=== PATIENT | male | born 1975 | race African-American/Black ===

== ENCOUNTER 2018-08-07 09:10 | Inpatient (IN) | payer SELFPAY ==
[~2018-08-07] VITALS: Ht 177.8 cm; Wt 106.2 kg
[2018-08-07] MEDS ORDERED: ASPIRIN 325 MG TABLET PO ONE (09:30)
[2018-08-07] MEDS ORDERED: IV NORMAL SALINE 1000ML BAG 1,000 ML IV ONE (09:30)
--- NOTE | 2018-08-07 09:31 | PHYS DOC ---
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 Patient denies anything specifically exacerbating or relieving the pain. He states he has tried Tylenol 325 mg this morning with no relief. Patient is also complaining of shortness of breath. Denies any nausea vomiting. He states he uses marijuana occasionally Review of Systems Review of Systems Constitutional: Denies fever or chills [] Eyes: Denies change in visual acuity, redness, or eye pain [] HENT: Denies nasal congestion or sore throat [] Respiratory: Reports shortness of breath. Denies cough Cardiovascular: Reports chest pain GI: Denies abdominal pain, nausea, vomiting, bloody stools or diarrhea [] : Denies dysuria or hematuria [] Musculoskeletal: Denies back pain or joint pain [] Integument: Denies rash or skin lesions [] Neurologic: Denies headache, focal weakness or sensory changes [] Endocrine: Denies polyuria or polydipsia [] All other systems were reviewed and found to be within normal limits, except as documented in this report Current Medications Current Medications Current Medications Medications (Trade) Dose Ordered Sig/Iris Start Time Stop Time Status Last Admin Dose Admin Aspirin (Khadijah Aspirin) 325 mg 1X ONCE 08/07/18 09:30 08/07/18 09:31 DC 08/07/18 09:33 325 MG Info (CONTRAST GIVEN -- Rx MONITORING) 1 each PRN DAILY PRN 08/07/18 10:30 08/09/18 10:29 Iohexol (Omnipaque 350 Mg/ml) 100 ml 1X ONCE 08/07/18 10:30 08/07/18 10:31 DC 08/07/18 10:26 100 ML Nitroglycerin (Nitrostat) 0.4 mg PRN Q5MIN PRN 08/07/18 09:30 08/08/18 09:29 08/07/18 09:47 0.4 MG Sodium Chloride 1,000 ml @ 1,000 mls/hr 1X ONCE 08/07/18 09:30 08/07/18 10:29 DC 08/07/18 09:34 1,000 MLS/HR Allergies Allergies Allergies Coded Allergies Type Severity Reaction Last Updated Verified No Known Drug Allergies 04/16/14 No Physical Exam Physical Exam Constitutional: Well developed, well nourished, no acute distress, non-toxic appearance. [] HENT: Normocephalic, atraumatic, bilateral external ears normal, oropharynx moist, no oral exudates, nose normal. [] Eyes: PERRLA, EOMI, conjunctiva normal, no discharge. [] Neck: Normal range of motion, no tenderness, supple, no stridor. [] Cardiovascular: Tachycardic, sweating Lungs & Thorax: Bilateral breath sounds clear to auscultation [] Abdomen: Bowel sounds normal, soft, no tenderness, no masses, no pulsatile masses. [] Skin: Warm, dry, no erythema, no rash. [] Back: No tenderness, no CVA tenderness. [] Extremities: No tenderness, no cyanosis, no clubbing, ROM intact, no edema. [] Neurologic: Alert and oriented X 3, normal motor function, normal sensory function, no focal deficits noted. [] Psychologic: Affect normal, judgement normal, mood normal. [] Current Patient Data Vital Signs Vital Signs Date Time Temp Pulse Resp B/P (MAP) Pulse Ox O2 Delivery O2 Flow Rate FiO2 08/07/18 10:18 114 138/78 (98) 98 Room Air 08/07/18 09:24 98.3 20 98.3 Lab Values Laboratory Tests Test 08/07/18 09:20 White Blood Count 13.1 x10^3/uL (4.0-11.0) H Red Blood Count 4.92 x10^6/uL (4.30-5.70) Hemoglobin 15.0 g/dL (13.0-17.5) Hematocrit 47.0 % (39.0-53.0) Mean Corpuscular Volume 95 fL (79-100) Mean Corpuscular Hemoglobin 31 pg (25-35) Mean Corpuscular Hemoglobin Concent 32 g/dL (31-37) Red Cell Distribution Width 13.7 % (11.5-14.5) Platelet Count 288 x10^3/uL (140-400) Neutrophils (%) (Auto) 71 % (31-73) Lymphocytes (%) (Auto) 21 % (24-48) L Monocytes (%) (Auto) 5 % (0-9) Eosinophils (%) (Auto) 3 % (0-3) Basophils (%) (Auto) 1 % (0-3) Neutrophils # (Auto) 9.3 x10^3uL (1.8-7.7) H Lymphocytes # (Auto) 2.7 x10^3/uL (1.0-4.8) Monocytes # (Auto) 0.7 x10^3/uL (0.0-1.1) Eosinophils # (Auto) 0.3 x10^3/uL (0.0-0.7) Basophils # (Auto) 0.1 x10^3/uL (0.0-0.2) Prothrombin Time 13.1 SEC (11.7-14.0) Prothrombin Time INR 1.0 (0.8-1.1) D-Dimer (Annie) 0.52 ug/mlFEU (0.00-0.50) H Sodium Level 142 mmol/L (136-145) Potassium Level 3.8 mmol/L (3.5-5.1) Chloride Level 105 mmol/L (98-107) Carbon Dioxide Level 22 mmol/L (21-32) Anion Gap 15 (6-14) H Blood Urea Nitrogen 7 mg/dL (8-26) L Creatinine 1.5 mg/dL (0.7-1.3) H Estimated GFR (Cockcroft-Gault) 61.5 BUN/Creatinine Ratio 5 (6-20) L Glucose Level 138 mg/dL (70-99) H Calcium Level 9.1 mg/dL (8.5-10.1) Magnesium Level 2.1 mg/dL (1.8-2.4) Total Bilirubin 0.6 mg/dL (0.2-1.0) Aspartate Amino Transferase (AST) 86 U/L (15-37) H Alanine Aminotransferase (ALT) 111 U/L (16-63) H Alkaline Phosphatase 92 U/L (46-116) Creatine Kinase 213 U/L (39-308) Creatine Kinase MB (Mass) 0.9 ng/mL (0.0-3.6) Creatine Kinase MB Relative Index 0.4 % (0-4) Troponin I Quantitative 0.059 ng/mL (0.000-0.055) EW-Ioe-G-Type Natriuretic Peptide 3170 pg/mL (0-124) H Total Protein 7.6 g/dL (6.4-8.2) Albumin 4.0 g/dL (3.4-5.0) Albumin/Globulin Ratio 1.1 (1.0-1.7) Lipase 180 U/L (73-393) Thyroid Stimulating Hormone (TSH) 1.474 uIU/mL (0.358-3.74) Ethyl Alcohol Level < 10 mg/dL (0-10) Laboratory Tests 08/07/18 09:20 Laboratory Tests 08/07/18 09:20 EKG EKG 09:[address] Crawford sinus tachycardia HR 124 no STEMI[] Radiology/Procedures Radiology/Procedures [] Course & Med Decision Making Course & Med Decision Making Pertinent Labs and Imaging studies reviewed. (See chart for details) This is a 43-year-old male patient presenting to the ED today complaining of substernal chest pain that began yesterday. EKG showed patient was tachycardic in the 120s. D-dimer was slightly up at 0.059 , CT chest is negative for PE. Heartscore-4 Consulted with [facility] [employer] who will follow-up with patient Consulted with Dr. Wang who accepted patient for admission. Patient informed Dr. Wang he uses cocaine. Dragon Disclaimer Dragon Disclaimer This electronic medical record was generated, in whole or in part, using a voice recognition dictation system. Departure Departure Impression: Primary Impression: Chest pain Additional Impressions: Elevated BP Smoking addiction Non-ST elevation TX (NSTEMI) Disposition: ADMITTED INPATIENT Condition: STABLE Referrals: NON,STAFF (PCP) Problem Qualifiers Primary Impression: Chest pain Chest pain type: unspecified Qualified Codes: R07.9 - Chest pain, unspecified BASIA DUMONT SARAHI Aug 07, 2018 09:30
[2018-08-07 09:34] LABS: BASO # 0.1 x10^3/uL (0.0-0.2); BASO % 1 % (0-3); EOS # 0.3 x10^3/uL (0.0-0.7); EOS % 3 % (0-3); LYMPH # 2.7 x10^3/uL (1.0-4.8); LYMPH % 21 % (24-48); MEAN CORPUSCULAR HEMOGLOBIN 31 pg (25-35); MEAN CORPUSCULAR HGB CONC 32 g/dL (31-37); MEAN CORPUSCULAR VOLUME 95 fL (79-100); MONO # 0.7 x10^3/uL (0.0-1.1); MONO % 5 % (0-9); NEUT # 9.3 x10^3uL (1.8-7.7); NEUT % 71 % (31-73); PLATELET COUNT 288 x10^3/uL (140-400); RED BLOOD COUNT 4.92 x10^6/uL (4.30-5.70); RED CELL DISTRIBUTION WIDTH 13.7 % (11.5-14.5); WHITE BLOOD COUNT 13.1 x10^3/uL (4.0-11.0)
[2018-08-07] MEDS: NITROGLYCERIN SUBLINGUAL 0.4 MG BOTTLE OF 25. SL PRN ×2 (09:34→09:47)
--- NOTE | 2018-08-07 09:47 | RAD ---
Indication:CHEST PAIN TECHNIQUE:Portable AP chest X-ray COMPARISON:Previous x-ray from 03/22/2013 FINDINGS: Heart is moderately enlarged in size. Prominent bilateral bronchial markings are seen. No focal consolidation. No pneumothorax or pleural effusion. Visualized bony thorax is within normal limits. IMPRESSION: 1. Interval with development of cardiomegaly. 2. Peribronchial edema with superimposed trace interstitial edema or bronchitis/atypical/viral infection. Electronically signed by: Ej Atkins DO (08/07/2018 9:44 AM) [id number]
[2018-08-07 09:53] LABS: CALCIUM 9.1 mg/dL (8.5-10.1); CREATININE 1.5 mg/dL (0.7-1.3); GFR 61.5; POTASSIUM 3.8 mmol/L (3.5-5.1)
[2018-08-07 09:56] LABS: PROTHROMBIN TIME PATIENT 13.1 SEC (11.7-14.0)
[2018-08-07 09:59] LABS: ALBUMIN/GLOBULIN RATIO 1.1 (1.0-1.7); MAGNESIUM 2.1 mg/dL (1.8-2.4); TOTAL BILIRUBIN 0.6 mg/dL (0.2-1.0); TOTAL PROTEIN 7.6 g/dL (6.4-8.2)
[2018-08-07 10:09] LABS: D-DIMER 0.52 ug/mlFEU (0.00-0.50)
[2018-08-07] MEDS ORDERED: CONTRAST GIVEN. MC PRN (10:30)
[2018-08-07] MEDS ORDERED: IOHEXOL 350 MG/ML 100 ML VIAL. IV ONE (10:30)
--- NOTE | 2018-08-07 10:52 | RAD ---
PQRS Compliance statement: One or more of the following individualized dose reduction techniques were utilized for this examination: 1. Automated exposure control. 2. Adjustment of the mA and/or kV according to patient size. 3. Use of iterative reconstruction technique. Indication:Chest pain, ELEVATED D DIMER INJ 100ML OMNI 350 NO PREV TECHNIQUE: CT angiogram of the chest with IV contrast with multiplanar MIP reformats. COMPARISON:None FINDINGS: Diagnostic quality PE study. There are no central, segmental or subsegmental filling defects in the pulmonary arteries. Heart is normal in size. No pericardial or pleural effusion. Clear neck base. No enlarged axillary adenopathy. Enlarged subcarinal lymph node approximately measuring 2.7 x 2.0 cm. 1.6 x 1.1 cm left hilar lymph node. 2.0 x 1.8 cm right hilar lymph node. Central airways are patent. Bilateral subpleural reticular opacities are seen in the lower lobes, right middle lobe and lingula. Visualized sections through the liver, spleen, pancreas, adrenals and kidneys within normal limits. No suspicious bony lesion. IMPRESSION: 1. No PE. 2. Mildly enlarged mediastinal and bilateral hilar lymph nodes, nonspecific may be reactive. 3. Bilateral lower lung zone subpleural reticular opacities, nonspecific may represent early changes of interstitial disease. Electronically signed by: Ej Atkins DO (08/07/2018 10:49 AM) [id number]
[2018-08-07] MEDS ORDERED: NITROGLYCERIN SUBLINGUAL 0.4 MG BOTTLE OF 25. SL PRN (11:30)
[2018-08-07] MEDS ORDERED: ACETAMINOPHEN 325 MG TABLET. PO PRN (11:30)
[2018-08-07] MEDS ORDERED: ONDANSETRON PF 4 MG/2 ML VIAL. IV PRN (11:30)
[2018-08-07] MEDS ORDERED: MORPHINE SULFATE 2 MG/ML VIAL. IV PRN (11:30)
--- NOTE | 2018-08-07 12:49 | EKG ---
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
[2018-08-07 12:50] VITALS: BP 129/88
--- NOTE | 2018-08-07 14:17 | PDOC2 ---
CARDIAC CONSULT DATE OF CONSULT Date of Consult DATE: 08/07/18 TIME: 14:12 REASON FOR CONSULT Reason for Consult: Chest Pain REFERRING PHYSICIAN Referring Physician: Chanelle Lujan APRN SOURCE Source: Chart review, Patient HISTORY OF PRESENT ILLNESS HISTORY OF PRESENT ILLNESS This is a 43 yo male who presented secondary to chest pain. 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 Located in his central chest. Describes as aching. No dizziness, diaphoresis, palpitations, SOA, or nausea/vomiting. [place] like possible GERD- too Tums- pain seemed to resolve. Went home and went to bed. Woke up with pain in left side. Describes as aching. Much worse with deep breathing. No history of CAD. Previous h/o CAD but does not routinely take oral meds. PAST MEDICAL HISTORY Cardiovascular: HTN Pulmonary: No pertinent hx GI: GERD Heme/Onc: No pertinent hx Hepatobiliary: No pertinent hx Psych: Addictions (cocaine ) Rheumatologic: No pertinent hx Infectious disease: No pertinent hx ENT: No pertinent hx Renal/: No pertinent hx Endocrine: No pertinent hx Dermatology: No pertinent hx PAST SURGICAL HISTORY Past Surgical History: No pertinent history FAMILY HISTORY Family History: Diabetes, High Cholestrol, Hypertension SOCIAL HISTORY Smoke: <1 pack per day ALCOHOL: other (12 pack per week) Drugs: Cocaine, Marijuana Lives: with Family CURRENT MEDICATIONS CURRENT MEDICATIONS Current Medications Medications (Trade) Dose Ordered Sig/Iris Route PRN Reason Start Time Stop Time Status Last Admin Dose Admin Aspirin (Khadijah Aspirin) 325 mg 1X ONCE PO 08/07/18 09:30 08/07/18 09:31 DC 08/07/18 09:33 Nitroglycerin (Nitrostat) 0.4 mg PRN Q5MIN PRN SL CP RATING > 1/10 08/07/18 09:30 08/08/18 09:29 08/07/18 09:47 Sodium Chloride 1,000 ml @ 1,000 mls/hr 1X ONCE IV 08/07/18 09:30 08/07/18 10:29 DC 08/07/18 09:34 Iohexol (Omnipaque 350 Mg/ml) 100 ml 1X ONCE IV 08/07/18 10:30 08/07/18 10:31 DC 08/07/18 10:26 ALLERGIES ALLERGIES: Coded Allergies: No Known Drug Allergies (Unverified , 04/16/14) ROS Review of System 14 point ROS conducted with pertinent positives noted above in HPI. PHYSICAL EXAM General: Alert, Oriented X3, Cooperative, No acute distress HEENT: Atraumatic Lungs: Clear to auscultation, Other (diminished bases ) Abdomen: Soft Extremities: Normal pulses, Other (trace bilateral LE edema ) Neuro: Normal speech, Sensation intact Psych/Mental Status: Mental status NL, Mood NL MUSCULOSKELETAL: No deformity VITALS VITALS Vital Signs Date Time Temp Pulse Resp B/P (MAP) Pulse Ox O2 Delivery O2 Flow Rate FiO2 08/07/18 13:05 Room Air 08/07/18 12:50 98.1 114 18 129/88 (102) 99 98.1 LABS Lab: Laboratory Tests Test 08/07/18 09:20 08/07/18 13:20 White Blood Count 13.1 x10^3/uL (4.0-11.0) Red Blood Count 4.92 x10^6/uL (4.30-5.70) Hemoglobin 15.0 g/dL (13.0-17.5) Hematocrit 47.0 % (39.0-53.0) Mean Corpuscular Volume 95 fL (79-100) Mean Corpuscular Hemoglobin 31 pg (25-35) Mean Corpuscular Hemoglobin Concent 32 g/dL (31-37) Red Cell Distribution Width 13.7 % (11.5-14.5) Platelet Count 288 x10^3/uL (140-400) Neutrophils (%) (Auto) 71 % (31-73) Lymphocytes (%) (Auto) 21 % (24-48) Monocytes (%) (Auto) 5 % (0-9) Eosinophils (%) (Auto) 3 % (0-3) Basophils (%) (Auto) 1 % (0-3) Neutrophils # (Auto) 9.3 x10^3uL (1.8-7.7) Lymphocytes # (Auto) 2.7 x10^3/uL (1.0-4.8) Monocytes # (Auto) 0.7 x10^3/uL (0.0-1.1) Eosinophils # (Auto) 0.3 x10^3/uL (0.0-0.7) Basophils # (Auto) 0.1 x10^3/uL (0.0-0.2) Prothrombin Time 13.1 SEC (11.7-14.0) Prothromb Time International Ratio 1.0 (0.8-1.1) D-Dimer (Annie) 0.52 ug/mlFEU (0.00-0.50) Sodium Level 142 mmol/L (136-145) Potassium Level 3.8 mmol/L (3.5-5.1) Chloride Level 105 mmol/L (98-107) Carbon Dioxide Level 22 mmol/L (21-32) Anion Gap 15 (6-14) Blood Urea Nitrogen 7 mg/dL (8-26) Creatinine 1.5 mg/dL (0.7-1.3) Estimated GFR (Cockcroft-Gault) 61.5 BUN/Creatinine Ratio 5 (6-20) Glucose Level 138 mg/dL (70-99) Calcium Level 9.1 mg/dL (8.5-10.1) Magnesium Level 2.1 mg/dL (1.8-2.4) Total Bilirubin 0.6 mg/dL (0.2-1.0) Aspartate Amino Transf (AST/SGOT) 86 U/L (15-37) Alanine Aminotransferase (ALT/SGPT) 111 U/L (16-63) Alkaline Phosphatase 92 U/L (46-116) Creatine Kinase 213 U/L (39-308) Creatine Kinase MB (Mass) 0.9 ng/mL (0.0-3.6) Creatine Kinase MB Relative Index 0.4 % (0-4) Troponin I Quantitative 0.059 ng/mL (0.000-0.055) 0.048 ng/mL (0.000-0.055) TM-Dwq-E-Type Natriuretic Peptide 3170 pg/mL (0-124) Total Protein 7.6 g/dL (6.4-8.2) Albumin 4.0 g/dL (3.4-5.0) Albumin/Globulin Ratio 1.1 (1.0-1.7) Lipase 180 U/L (73-393) Thyroid Stimulating Hormone (TSH) 1.474 uIU/mL (0.358-3.74) Ethyl Alcohol Level < 10 mg/dL (0-10) ASSESSMENT/PLAN ASSESSMENT/PLAN 1. Chest pain, most probable pleuritic as it is worsened with deep breathing 2. Mild troponin elevated; highest 0.059. Most probably type II, demand ischemic in the setting of cocaine use, HTN, and SUZANNE 3. CMP; LVEF significantly depressed per preliminary echo. Possible NICM given h/o cocaine abuse 4. Hypertension; elevated 5. Substance abuse; cocaine. Report using a couple time per week for the last five years. 6. Leukocytosis 7. Tachycardia; sinus 8. ? CKD; Cr 1.5 9. Elevated LFTs Recommendations ASA check lipids Start optimization therapy Mild diuresis with monitoring of renal function Consider outpatient ischemic evaluation to r/o ischemic etiology for CMP SS consult as patient does not have insurance Abstinence of substance abuse STEPHANIE ANGELO APRN Aug 07, 2018 14:17
--- NOTE | 2018-08-07 15:23 | CARD ---
MR#: [id number] Date of Study: 08/07/2018 Ordering Physician: STEPHANIE ANGELO, Referring Physician: JAY HOYT Tech: Keily Montaño RDCS APPROVED REPORT EXAM: Two-dimensional and M-mode echocardiogram with Doppler and color Doppler. Other Information Quality : Good INDICATION Chest Pain 2D DIMENSIONS RVDd2.6 (2.9-3.5cm)Left Atrium(2D)4.7 (1.6-4.0cm) IVSd1.3 (0.7-1.1cm)Aortic Root(2D)2.9 (2.0-3.7cm) LVDd5.6 (3.9-5.9cm)LVOT Diameter2.3 (1.8-2.4cm) PWd1.3 (0.7-1.1cm)LVDs5.3 (2.5-4.0cm) FS (%) 6.0 %SV20.8 ml Aortic Valve AoV Peak Manjeet.129.8cm/sAoV VTI15.7cm AO Peak GR.6.7mmHgLVOT Peak Manjeet.78.8cm/s AO Mean GR.4mmHgAVA (VMAX)2.56cm2 TONY (VTI)3.20cm2 Tricuspid Valve TR P. [id number] TR Peak [id number] LEFT VENTRICLE The Left Ventricle is mildly dilated. There is mild concentric left ventricular hypertrophy. Left kevin tricle systolic function is severely impaired. The Ejection Fraction is 15-20%. There is severe globa l hypokinesis of the left ventricle. RIGHT VENTRICLE The right ventricle is normal size. The right ventricular systolic function is normal. ATRIA The left atrium is mildly dilated. The right atrium size is normal. The interatrial septum is intact with no evidence for an atrial septal defect or patent foramen ovale as noted on 2-D or Doppler imagi ng. AORTIC VALVE The aortic valve is normal in structure and function. Doppler and Color Flow revealed trace aortic re gurgitation. There is no significant aortic valvular stenosis. MITRAL VALVE The mitral valve is calcified but opens well. There is no evidence of mitral valve prolapse. There is no mitral valve stenosis. Doppler and Color-flow revealed mild mitral regurgitation. TRICUSPID VALVE The tricuspid valve is normal in structure and function. Doppler and Color Flow revealed mild tricusp id regurgitation. The PA pressure was estimated at 38 mmHg. There is no tricuspid valve stenosis. PULMONIC VALVE The pulmonic valve is not well visualized. Doppler and Color Flow revealed trace pulmonic valvular re gurgitation. There is no pulmonic valvular stenosis. GREAT VESSELS The aortic root is normal in size. The ascending aorta is normal in size. The IVC is normal in size a nd collapses <50% with inspiration. PERICARDIAL EFFUSION There is no evidence of significant pericardial effusion. Critical Notification Critical Value: No <Conclusion> The Left Ventricle is mildly dilated. Left ventricle systolic function is severely impaired. The Ejection Fraction is 15-20%. There is severe global hypokinesis of the left ventricle. There is mild concentric left ventricular hypertrophy. There is no significant aortic valvular stenosis. Doppler and Color Flow revealed trace aortic regurgitation. Doppler and Color-flow revealed mild mitral regurgitation. Doppler and Color Flow revealed mild tricuspid regurgitation. The PA pressure was estimated at 38 mmHg. Signed by : Donovan Pruitt MD Electronically Approved : 08/07/2018 15:22:52
[2018-08-07 15:38] VITALS: BP 145/98
[2018-08-07] MEDS: LISINOPRIL 5 MG TABLET. PO SCH (17:25)
[2018-08-07] MEDS: CARVEDILOL 6.25 MG TABLET. PO SCH (17:25)
[2018-08-07] MEDS ORDERED: FUROSEMIDE 40 MG/4 ML VIAL. IVP ONE (18:00)
[2018-08-07 19:00] VITALS: BP 123/82
--- NOTE | 2018-08-07 19:25 | SSS ---
ADMIT DATE: 08/07/2018 CHIEF COMPLAINT: Chest pain. HISTORY OF PRESENT ILLNESS: The patient is a pleasant, relatively healthy middle-aged male who has been experimenting with cocaine lately. He just did it within the past couple of days. He presents to the ER with chest pain. His troponin is slightly bumped to 0.059. We suspect he has a type 2 demand ischemia, rates it 12/09 and he has associated nausea and anxiety. I discussed the case with ER physician. We are going to admit the patient and consult Cardiology. PAST MEDICAL HISTORY: Cocaine abuse, hypertension, GERD. ALLERGIES: None. FAMILY HISTORY: He denies coronary artery disease in the family. SOCIAL HISTORY: He does not drink or smoke. He takes cocaine, but states he is going to quit now that he has learned his lesson with this hospitalization. He is . MEDICATIONS: Reviewed, please refer to the MRAD. REVIEW OF SYSTEMS: GENERAL: No history of weight change, weakness or fevers. SKIN: No bruising, hair changes or rashes. EYES: No blurred, double or loss of vision. NOSE AND THROAT: No history of nosebleeds, hoarseness or sore throat. HEART: He complains of chest pain, although it is resolving. LUNGS: Denies cough, hemoptysis, wheezing or shortness of breath. GASTROINTESTINAL: Denies changes in appetite, nausea, vomiting, diarrhea or constipation. GENITOURINARY: No history of frequency, urgency, hesitancy or nocturia. NEUROLOGIC: Denies history of numbness, tingling, tremor or weakness. PSYCHIATRIC: No history of panic, anxiety or depression. ENDOCRINE: No history of heat or cold intolerance, polyuria or polydipsia. EXTREMITIES: Denies muscle weakness, joint pain, pain on walking or stiffness. PHYSICAL EXAMINATION: VITAL SIGNS: Temperature afebrile, pulse 98, respirations 18, blood pressure 154/90. GENERAL: He is alert, cooperative. HEART: Normal S1, S2. LUNGS: Clear. ABDOMEN: Soft. EXTREMITIES: No edema. SKIN: No rash. ENDOCRINE: No thyromegaly. LYMPHATICS: No cervical nodes. HEMATOPOIETIC: No bruising. PSYCHIATRIC: He is stable. LABORATORY DATA: Troponin is 0.059. White count 13. ASSESSMENT AND PLAN: 1. Elevated troponin and chest pain, probably secondary to cocaine. The patient has been admitted. We will check serial enzymes, serial EKGs. Consult Cardiology, cardiac monitoring. Daily aspirin, full code, DVT prophylaxis and home meds. JAY HOYT DO DR: ROSALIE/ghislaine JOB#: [id number] / [id number]
[2018-08-07 23:00] VITALS: BP 139/88
[2018-08-08 03:00] VITALS: BP 125/79
[2018-08-08 05:21] LABS: BASO % 0 % (0-3); EOS # 0.1 x10^3/uL (0.0-0.7); EOS % 1 % (0-3); HEMATOCRIT 43.5 % (39.0-53.0); HEMOGLOBIN 14.4 g/dL (13.0-17.5); LYMPH # 3.5 x10^3/uL (1.0-4.8); LYMPH % 28 % (24-48); MEAN CORPUSCULAR HEMOGLOBIN 31 pg (25-35); MEAN CORPUSCULAR HGB CONC 33 g/dL (31-37); MEAN CORPUSCULAR VOLUME 95 fL (79-100); MONO # 1.3 x10^3/uL (0.0-1.1); MONO % 11 % (0-9); NEUT # 7.7 x10^3uL (1.8-7.7); NEUT % 61 % (31-73); PLATELET COUNT 279 x10^3/uL (140-400); RED CELL DISTRIBUTION WIDTH 13.5 % (11.5-14.5); WHITE BLOOD COUNT 12.7 x10^3/uL (4.0-11.0)
[2018-08-08 05:41] LABS: CALCIUM 8.8 mg/dL (8.5-10.1); CREATININE 1.3 mg/dL (0.7-1.3); GFR 72.6; POTASSIUM 3.4 mmol/L (3.5-5.1)
[2018-08-08 05:48] LABS: CHOLESTEROL/HDL RATIO 3.8
[2018-08-08 07:00] VITALS: BP 127/97
--- NOTE | 2018-08-08 07:54 | PDOC ---
PROGRESS NOTES Chief Complaint Chief Complaint Chest pain, most probable pleuritic as it is worsened with deep breathing Mild troponin elevated; highest 0.059. Most probably type II, demand ischemic in the setting of cocaine use, HTN, and SUZANNE Cardiomyopathy LVEF significantly depressed per preliminary echo. Possible NICM given h/o cocaine abuse Hypertension; elevated Substance abuse; cocaine. Report using a couple time per week for the last five years. Leukocytosis Tachycardia; sinus ? CKD; Cr 1.5 Elevated LFTs History of Present Illness History of Present Illness 43yo pleasant, relatively healthy middle-aged male who has been experimenting with cocaine lately. He just did it within the past couple of days. He presents to the ER with chest pain. His troponin was slightly bumped to 0.059. We suspect he has a type 2 demand ischemia, rates it 12/09 and he has associated nausea and anxiety. 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 Improved by this morning, able to take PO, he wishes to stop cocaine. Plan: Dc on coreg, MARIANNE, ASA The Left Ventricle is mildly dilated. Left ventricle systolic function is severely impaired. The Ejection Fraction is 15-20%. There is severe global hypokinesis of the left ventricle. There is mild concentric left ventricular hypertrophy. There is no significant aortic valvular stenosis. Doppler and Color Flow revealed trace aortic regurgitation. Doppler and Color-flow revealed mild mitral regurgitation. Doppler and Color Flow revealed mild tricuspid regurgitation. The PA pressure was estimated at 38 mmHg. Vitals Vitals Vital Signs Date Time Temp Pulse Resp B/P (MAP) Pulse Ox O2 Delivery O2 Flow Rate FiO2 08/08/18 03:00 99.2 118 18 125/79 (94) 98 Room Air 99.2 Physical Exam General: Alert, Oriented X3, Cooperative, No acute distress Abdomen: Soft Extremities: Normal pulses, Other (trace bilateral LE edema ) Labs LABS Laboratory Tests Test 08/07/18 09:20 08/07/18 13:20 08/07/18 18:20 08/08/18 04:30 White Blood Count 13.1 x10^3/uL (4.0-11.0) 12.7 x10^3/uL (4.0-11.0) Red Blood Count 4.92 x10^6/uL (4.30-5.70) 4.60 x10^6/uL (4.30-5.70) Hemoglobin 15.0 g/dL (13.0-17.5) 14.4 g/dL (13.0-17.5) Hematocrit 47.0 % (39.0-53.0) 43.5 % (39.0-53.0) Mean Corpuscular Volume 95 fL (79-100) 95 fL (79-100) Mean Corpuscular Hemoglobin 31 pg (25-35) 31 pg (25-35) Mean Corpuscular Hemoglobin Concent 32 g/dL (31-37) 33 g/dL (31-37) Red Cell Distribution Width 13.7 % (11.5-14.5) 13.5 % (11.5-14.5) Platelet Count 288 x10^3/uL (140-400) 279 x10^3/uL (140-400) Neutrophils (%) (Auto) 71 % (31-73) 61 % (31-73) Lymphocytes (%) (Auto) 21 % (24-48) 28 % (24-48) Monocytes (%) (Auto) 5 % (0-9) 11 % (0-9) Eosinophils (%) (Auto) 3 % (0-3) 1 % (0-3) Basophils (%) (Auto) 1 % (0-3) 0 % (0-3) Neutrophils # (Auto) 9.3 x10^3uL (1.8-7.7) 7.7 x10^3uL (1.8-7.7) Lymphocytes # (Auto) 2.7 x10^3/uL (1.0-4.8) 3.5 x10^3/uL (1.0-4.8) Monocytes # (Auto) 0.7 x10^3/uL (0.0-1.1) 1.3 x10^3/uL (0.0-1.1) Eosinophils # (Auto) 0.3 x10^3/uL (0.0-0.7) 0.1 x10^3/uL (0.0-0.7) Basophils # (Auto) 0.1 x10^3/uL (0.0-0.2) 0.0 x10^3/uL (0.0-0.2) Prothrombin Time 13.1 SEC (11.7-14.0) Prothromb Time International Ratio 1.0 (0.8-1.1) D-Dimer (Annie) 0.52 ug/mlFEU (0.00-0.50) Sodium Level 142 mmol/L (136-145) 141 mmol/L (136-145) Potassium Level 3.8 mmol/L (3.5-5.1) 3.4 mmol/L (3.5-5.1) Chloride Level 105 mmol/L (98-107) 105 mmol/L (98-107) Carbon Dioxide Level 22 mmol/L (21-32) 26 mmol/L (21-32) Anion Gap 15 (6-14) 10 (6-14) Blood Urea Nitrogen 7 mg/dL (8-26) 6 mg/dL (8-26) Creatinine 1.5 mg/dL (0.7-1.3) 1.3 mg/dL (0.7-1.3) Estimated GFR (Cockcroft-Gault) 61.5 72.6 BUN/Creatinine Ratio 5 (6-20) Glucose Level 138 mg/dL (70-99) 101 mg/dL (70-99) Calcium Level 9.1 mg/dL (8.5-10.1) 8.8 mg/dL (8.5-10.1) Magnesium Level 2.1 mg/dL (1.8-2.4) Total Bilirubin 0.6 mg/dL (0.2-1.0) Aspartate Amino Transf (AST/SGOT) 86 U/L (15-37) Alanine Aminotransferase (ALT/SGPT) 111 U/L (16-63) Alkaline Phosphatase 92 U/L (46-116) Creatine Kinase 213 U/L (39-308) Creatine Kinase MB (Mass) 0.9 ng/mL (0.0-3.6) Creatine Kinase MB Relative Index 0.4 % (0-4) Troponin I Quantitative 0.059 ng/mL (0.000-0.055) 0.048 ng/mL (0.000-0.055) 0.053 ng/mL (0.000-0.055) OX-Hjq-K-Type Natriuretic Peptide 3170 pg/mL (0-124) Total Protein 7.6 g/dL (6.4-8.2) Albumin 4.0 g/dL (3.4-5.0) Albumin/Globulin Ratio 1.1 (1.0-1.7) Lipase 180 U/L (73-393) Thyroid Stimulating Hormone (TSH) 1.474 uIU/mL (0.358-3.74) Ethyl Alcohol Level < 10 mg/dL (0-10) Triglycerides Level 165 mg/dL (0-150) Cholesterol Level 153 mg/dL (0-200) LDL Cholesterol, Calculated 80 mg/dL (0-100) VLDL Cholesterol, Calculated 33 mg/dL (0-40) Non-HDL Cholesterol Calculated 113 mg/dL (0-129) HDL Cholesterol 40 mg/dL (40-60) Cholesterol/HDL Ratio 3.8 Assessment and Plan Assessmemt and Plan Problems Medical Problems: (1) Chest pain Status: Acute (2) Elevated BP Status: Acute (3) Non-ST elevation [place] (NSTEMI) Status: Acute (4) Smoking addiction Status: Acute Comment Review of Relevant I have reviewed the following items byron (where applicable) has been applied. Labs Laboratory Tests Test 08/07/18 09:20 08/07/18 13:20 08/07/18 18:20 08/08/18 04:30 White Blood Count 13.1 x10^3/uL (4.0-11.0) 12.7 x10^3/uL (4.0-11.0) Red Blood Count 4.92 x10^6/uL (4.30-5.70) 4.60 x10^6/uL (4.30-5.70) Hemoglobin 15.0 g/dL (13.0-17.5) 14.4 g/dL (13.0-17.5) Hematocrit 47.0 % (39.0-53.0) 43.5 % (39.0-53.0) Mean Corpuscular Volume 95 fL (79-100) 95 fL (79-100) Mean Corpuscular Hemoglobin 31 pg (25-35) 31 pg (25-35) Mean Corpuscular Hemoglobin Concent 32 g/dL (31-37) 33 g/dL (31-37) Red Cell Distribution Width 13.7 % (11.5-14.5) 13.5 % (11.5-14.5) Platelet Count 288 x10^3/uL (140-400) 279 x10^3/uL (140-400) Neutrophils (%) (Auto) 71 % (31-73) 61 % (31-73) Lymphocytes (%) (Auto) 21 % (24-48) 28 % (24-48) Monocytes (%) (Auto) 5 % (0-9) 11 % (0-9) Eosinophils (%) (Auto) 3 % (0-3) 1 % (0-3) Basophils (%) (Auto) 1 % (0-3) 0 % (0-3) Neutrophils # (Auto) 9.3 x10^3uL (1.8-7.7) 7.7 x10^3uL (1.8-7.7) Lymphocytes # (Auto) 2.7 x10^3/uL (1.0-4.8) 3.5 x10^3/uL (1.0-4.8) Monocytes # (Auto) 0.7 x10^3/uL (0.0-1.1) 1.3 x10^3/uL (0.0-1.1) Eosinophils # (Auto) 0.3 x10^3/uL (0.0-0.7) 0.1 x10^3/uL (0.0-0.7) Basophils # (Auto) 0.1 x10^3/uL (0.0-0.2) 0.0 x10^3/uL (0.0-0.2) Prothrombin Time 13.1 SEC (11.7-14.0) Prothromb Time International Ratio 1.0 (0.8-1.1) D-Dimer (Annie) 0.52 ug/mlFEU (0.00-0.50) Sodium Level 142 mmol/L (136-145) 141 mmol/L (136-145) Potassium Level 3.8 mmol/L (3.5-5.1) 3.4 mmol/L (3.5-5.1) Chloride Level 105 mmol/L (98-107) 105 mmol/L (98-107) Carbon Dioxide Level 22 mmol/L (21-32) 26 mmol/L (21-32) Anion Gap 15 (6-14) 10 (6-14) Blood Urea Nitrogen 7 mg/dL (8-26) 6 mg/dL (8-26) Creatinine 1.5 mg/dL (0.7-1.3) 1.3 mg/dL (0.7-1.3) Estimated GFR (Cockcroft-Gault) 61.5 72.6 BUN/Creatinine Ratio 5 (6-20) Glucose Level 138 mg/dL (70-99) 101 mg/dL (70-99) Calcium Level 9.1 mg/dL (8.5-10.1) 8.8 mg/dL (8.5-10.1) Magnesium Level 2.1 mg/dL (1.8-2.4) Total Bilirubin 0.6 mg/dL (0.2-1.0) Aspartate Amino Transf (AST/SGOT) 86 U/L (15-37) Alanine Aminotransferase (ALT/SGPT) 111 U/L (16-63) Alkaline Phosphatase 92 U/L (46-116) Creatine Kinase 213 U/L (39-308) Creatine Kinase MB (Mass) 0.9 ng/mL (0.0-3.6) Creatine Kinase MB Relative Index 0.4 % (0-4) Troponin I Quantitative 0.059 ng/mL (0.000-0.055) 0.048 ng/mL (0.000-0.055) 0.053 ng/mL (0.000-0.055) OP-Lzz-P-Type Natriuretic Peptide 3170 pg/mL (0-124) Total Protein 7.6 g/dL (6.4-8.2) Albumin 4.0 g/dL (3.4-5.0) Albumin/Globulin Ratio 1.1 (1.0-1.7) Lipase 180 U/L (73-393) Thyroid Stimulating Hormone (TSH) 1.474 uIU/mL (0.358-3.74) Ethyl Alcohol Level < 10 mg/dL (0-10) Triglycerides Level 165 mg/dL (0-150) Cholesterol Level 153 mg/dL (0-200) LDL Cholesterol, Calculated 80 mg/dL (0-100) VLDL Cholesterol, Calculated 33 mg/dL (0-40) Non-HDL Cholesterol Calculated 113 mg/dL (0-129) HDL Cholesterol 40 mg/dL (40-60) Cholesterol/HDL Ratio 3.8 Laboratory Tests Test 08/07/18 09:20 08/07/18 13:20 08/07/18 18:20 08/08/18 04:30 White Blood Count 13.1 x10^3/uL (4.0-11.0) 12.7 x10^3/uL (4.0-11.0) Red Blood Count 4.92 x10^6/uL (4.30-5.70) 4.60 x10^6/uL (4.30-5.70) Hemoglobin 15.0 g/dL (13.0-17.5) 14.4 g/dL (13.0-17.5) Hematocrit 47.0 % (39.0-53.0) 43.5 % (39.0-53.0) Mean Corpuscular Volume 95 fL (79-100) 95 fL (79-100) Mean Corpuscular Hemoglobin 31 pg (25-35) 31 pg (25-35) Mean Corpuscular Hemoglobin Concent 32 g/dL (31-37) 33 g/dL (31-37) Red Cell Distribution Width 13.7 % (11.5-14.5) 13.5 % (11.5-14.5) Platelet Count 288 x10^3/uL (140-400) 279 x10^3/uL (140-400) Neutrophils (%) (Auto) 71 % (31-73) 61 % (31-73) Lymphocytes (%) (Auto) 21 % (24-48) 28 % (24-48) Monocytes (%) (Auto) 5 % (0-9) 11 % (0-9) Eosinophils (%) (Auto) 3 % (0-3) 1 % (0-3) Basophils (%) (Auto) 1 % (0-3) 0 % (0-3) Neutrophils # (Auto) 9.3 x10^3uL (1.8-7.7) 7.7 x10^3uL (1.8-7.7) Lymphocytes # (Auto) 2.7 x10^3/uL (1.0-4.8) 3.5 x10^3/uL (1.0-4.8) Monocytes # (Auto) 0.7 x10^3/uL (0.0-1.1) 1.3 x10^3/uL (0.0-1.1) Eosinophils # (Auto) 0.3 x10^3/uL (0.0-0.7) 0.1 x10^3/uL (0.0-0.7) Basophils # (Auto) 0.1 x10^3/uL (0.0-0.2) 0.0 x10^3/uL (0.0-0.2) Prothrombin Time 13.1 SEC (11.7-14.0) Prothromb Time International Ratio 1.0 (0.8-1.1) D-Dimer (Annie) 0.52 ug/mlFEU (0.00-0.50) Sodium Level 142 mmol/L (136-145) 141 mmol/L (136-145) Potassium Level 3.8 mmol/L (3.5-5.1) 3.4 mmol/L (3.5-5.1) Chloride Level 105 mmol/L (98-107) 105 mmol/L (98-107) Carbon Dioxide Level 22 mmol/L (21-32) 26 mmol/L (21-32) Anion Gap 15 (6-14) 10 (6-14) Blood Urea Nitrogen 7 mg/dL (8-26) 6 mg/dL (8-26) Creatinine 1.5 mg/dL (0.7-1.3) 1.3 mg/dL (0.7-1.3) Estimated GFR (Cockcroft-Gault) 61.5 72.6 BUN/Creatinine Ratio 5 (6-20) Glucose Level 138 mg/dL (70-99) 101 mg/dL (70-99) Calcium Level 9.1 mg/dL (8.5-10.1) 8.8 mg/dL (8.5-10.1) Magnesium Level 2.1 mg/dL (1.8-2.4) Total Bilirubin 0.6 mg/dL (0.2-1.0) Aspartate Amino Transf (AST/SGOT) 86 U/L (15-37) Alanine Aminotransferase (ALT/SGPT) 111 U/L (16-63) Alkaline Phosphatase 92 U/L (46-116) Creatine Kinase 213 U/L (39-308) Creatine Kinase MB (Mass) 0.9 ng/mL (0.0-3.6) Creatine Kinase MB Relative Index 0.4 % (0-4) Troponin I Quantitative 0.059 ng/mL (0.000-0.055) 0.048 ng/mL (0.000-0.055) 0.053 ng/mL (0.000-0.055) EB-Efp-E-Type Natriuretic Peptide 3170 pg/mL (0-124) Total Protein 7.6 g/dL (6.4-8.2) Albumin 4.0 g/dL (3.4-5.0) Albumin/Globulin Ratio 1.1 (1.0-1.7) Lipase 180 U/L (73-393) Thyroid Stimulating Hormone (TSH) 1.474 uIU/mL (0.358-3.74) Ethyl Alcohol Level < 10 mg/dL (0-10) Triglycerides Level 165 mg/dL (0-150) Cholesterol Level 153 mg/dL (0-200) LDL Cholesterol, Calculated 80 mg/dL (0-100) VLDL Cholesterol, Calculated 33 mg/dL (0-40) Non-HDL Cholesterol Calculated 113 mg/dL (0-129) HDL Cholesterol 40 mg/dL (40-60) Cholesterol/HDL Ratio 3.8 Medications Current Medications Aspirin (J. Hilburn Aspirin) 325 mg 1X ONCE PO Last administered on 08/07/18at 09:33 ; Start 08/07/18 at 09:30; Stop 08/07/18 at 09:31; Status DC Nitroglycerin (Nitrostat) 0.4 mg PRN Q5MIN PRN SL CP RATING > 1/10 Last administered on 08/07/18at 09:47; Start 08/07/18 at 09:30; Stop 08/08/18 at 09:29 Sodium Chloride 1,000 ml @ 1,000 mls/hr 1X ONCE IV Last administered on at 09:34; Start 08/07/18 at 09:30; Stop 08/07/18 at 10:29; Status DC Iohexol (Omnipaque 350 Mg/ml) 100 ml 1X ONCE IV Last administered on 08/07/18at 10:26; Start 08/07/18 at 10:30; Stop 08/07/18 at 10:31; Status DC Info (CONTRAST GIVEN -- Rx MONITORING) 1 each PRN DAILY PRN MC SEE COMMENTS; Start 08/07/18 at 10:30; Stop 08/09/18 at 10:29 Ondansetron HCl (Zofran) 4 mg PRN Q8HRS PRN IV NAUSEA/VOMITING; Start 08/07/18 at 11:30; Stop 08/08/18 at 11:29 Morphine Sulfate (Morphine Sulfate) 2 mg PRN Q2HR PRN IV PAIN; Start 08/07/18 at 11:30; Stop 08/08/18 at 11:29 Acetaminophen (Tylenol) 650 mg PRN Q4HRS PRN PO FEVER; Start 08/07/18 at 11:30; Stop 08/08/18 at 11:29 Nitroglycerin (Nitrostat) 0.4 mg PRN Q5MIN PRN SL CHEST PAIN; Start 08/07/18 at 11:30; Stop 08/08/18 at 11:29 Carvedilol (Coreg) 6.25 mg BIDWMEALS PO Last administered on 08/07/18at 17:25; Start 08/07/18 at 17:00 Lisinopril (Prinivil) 5 mg DAILY PO Last administered on 08/07/18at 17:25; Start 08/07/18 at 16:00 Aspirin (Ecotrin) 81 mg DAILYWBKFT PO ; Start 08/08/18 at 08:00 Furosemide (Lasix) 40 mg 1X ONCE IVP Last administered on 08/07/18at 18:10; Start 08/07/18 at 18:00; Stop 08/07/18 at 18:01; Status DC Vitals/I & O Vital Sign - Last 24 Hours 08/07/18 08/07/18 08/07/18 08/07/18 09:24 09:34 09:47 09:48 Temp 98.3 98.3 Pulse 126 117 112 114 Resp 20 B/P (MAP) 176/115 (135) 176/115 142/75 134/74 (94) Pulse Ox 100 98 O2 Delivery Room Air Room Air 08/07/18 08/07/18 08/07/18 08/07/18 10:18 10:32 12:50 13:05 Temp 98.1 98.1 Pulse 114 116 114 Resp 18 B/P (MAP) 138/78 (98) 152/99 (116) 129/88 (102) Pulse Ox 98 97 99 O2 Delivery Room Air Room Air Room Air Room Air 08/07/18 08/07/18 08/07/18 08/07/18 15:38 17:25 17:25 19:00 Temp 97.9 99.5 97.9 99.5 Pulse 114 114 114 116 Resp 18 18 B/P (MAP) 145/98 (114) 145/98 145/98 123/82 (96) Pulse Ox 96 95 O2 Delivery Room Air Room Air 08/07/18 08/07/18 08/08/18 20:01 23:00 03:00 Temp 99.4 99.2 99.4 99.2 Pulse 123 118 Resp 18 18 B/P (MAP) 139/88 (105) 125/79 (94) Pulse Ox 96 98 O2 Delivery Room Air Room Air Room Air Intake and Output 08/07/18 08/07/18 08/08/18 15:00 23:00 07:00 Intake Total 180 ml 580 ml 120 ml Balance 180 ml 580 ml 120 ml KAILYN LOPEZ MD Aug 08, 2018 07:54
[2018-08-08] MEDS ORDERED: ASPIRIN ENTERIC COATED 81 MG TABLET.DR. PO SCH (08:00)
[2018-08-08] MEDS: CARVEDILOL 6.25 MG TABLET. PO SCH (08:14)
[2018-08-08] MEDS: LISINOPRIL 5 MG TABLET. PO SCH (08:14)
[2018-08-08 10:57] VITALS: BP 96/71
[2018-08-08] MEDS ORDERED: CARV6.2511 PO (13:05)
[2018-08-08] MEDS ORDERED: ASPI-612 PO (13:05)
[2018-08-08] MEDS ORDERED: LISI-338 PO (13:05)
--- NOTE | 2018-08-08 13:14 | PDOC3 ---
Discharge Summary Visit Information Date of Admission: Aug 07, 2018 Date of Discharge: Aug 08, 2018 Admitting Diagnosis: NSTEMI Final Diagnosis Problems Medical Problems: (1) Chest pain Status: Acute (2) Elevated BP Status: Acute (3) Non-ST elevation [place] (NSTEMI) Status: Acute (4) Smoking addiction Status: Acute Brief Hospital Course Allergies Allergies Coded Allergies Type Severity Reaction Last Updated Verified No Known Drug Allergies 04/16/14 No Vital Signs Vital Signs Date Time Temp Pulse Resp B/P (MAP) Pulse Ox O2 Delivery O2 Flow Rate FiO2 08/08/18 10:57 98.0 109 20 96/71 (79) 95 Room Air 98.0 Lab Results Laboratory Tests Test 08/07/18 09:20 08/07/18 13:20 08/07/18 18:20 08/08/18 04:30 White Blood Count 13.1 x10^3/uL (4.0-11.0) 12.7 x10^3/uL (4.0-11.0) Red Blood Count 4.92 x10^6/uL (4.30-5.70) 4.60 x10^6/uL (4.30-5.70) Hemoglobin 15.0 g/dL (13.0-17.5) 14.4 g/dL (13.0-17.5) Hematocrit 47.0 % (39.0-53.0) 43.5 % (39.0-53.0) Mean Corpuscular Volume 95 fL (79-100) 95 fL (79-100) Mean Corpuscular Hemoglobin 31 pg (25-35) 31 pg (25-35) Mean Corpuscular Hemoglobin Concent 32 g/dL (31-37) 33 g/dL (31-37) Red Cell Distribution Width 13.7 % (11.5-14.5) 13.5 % (11.5-14.5) Platelet Count 288 x10^3/uL (140-400) 279 x10^3/uL (140-400) Neutrophils (%) (Auto) 71 % (31-73) 61 % (31-73) Lymphocytes (%) (Auto) 21 % (24-48) 28 % (24-48) Monocytes (%) (Auto) 5 % (0-9) 11 % (0-9) Eosinophils (%) (Auto) 3 % (0-3) 1 % (0-3) Basophils (%) (Auto) 1 % (0-3) 0 % (0-3) Neutrophils # (Auto) 9.3 x10^3uL (1.8-7.7) 7.7 x10^3uL (1.8-7.7) Lymphocytes # (Auto) 2.7 x10^3/uL (1.0-4.8) 3.5 x10^3/uL (1.0-4.8) Monocytes # (Auto) 0.7 x10^3/uL (0.0-1.1) 1.3 x10^3/uL (0.0-1.1) Eosinophils # (Auto) 0.3 x10^3/uL (0.0-0.7) 0.1 x10^3/uL (0.0-0.7) Basophils # (Auto) 0.1 x10^3/uL (0.0-0.2) 0.0 x10^3/uL (0.0-0.2) Prothrombin Time 13.1 SEC (11.7-14.0) Prothromb Time International Ratio 1.0 (0.8-1.1) D-Dimer (Annie) 0.52 ug/mlFEU (0.00-0.50) Sodium Level 142 mmol/L (136-145) 141 mmol/L (136-145) Potassium Level 3.8 mmol/L (3.5-5.1) 3.4 mmol/L (3.5-5.1) Chloride Level 105 mmol/L (98-107) 105 mmol/L (98-107) Carbon Dioxide Level 22 mmol/L (21-32) 26 mmol/L (21-32) Anion Gap 15 (6-14) 10 (6-14) Blood Urea Nitrogen 7 mg/dL (8-26) 6 mg/dL (8-26) Creatinine 1.5 mg/dL (0.7-1.3) 1.3 mg/dL (0.7-1.3) Estimated GFR (Cockcroft-Gault) 61.5 72.6 BUN/Creatinine Ratio 5 (6-20) Glucose Level 138 mg/dL (70-99) 101 mg/dL (70-99) Calcium Level 9.1 mg/dL (8.5-10.1) 8.8 mg/dL (8.5-10.1) Magnesium Level 2.1 mg/dL (1.8-2.4) Total Bilirubin 0.6 mg/dL (0.2-1.0) Aspartate Amino Transf (AST/SGOT) 86 U/L (15-37) Alanine Aminotransferase (ALT/SGPT) 111 U/L (16-63) Alkaline Phosphatase 92 U/L (46-116) Creatine Kinase 213 U/L (39-308) Creatine Kinase MB (Mass) 0.9 ng/mL (0.0-3.6) Creatine Kinase MB Relative Index 0.4 % (0-4) Troponin I Quantitative 0.059 ng/mL (0.000-0.055) 0.048 ng/mL (0.000-0.055) 0.053 ng/mL (0.000-0.055) LG-Gge-S-Type Natriuretic Peptide 3170 pg/mL (0-124) Total Protein 7.6 g/dL (6.4-8.2) Albumin 4.0 g/dL (3.4-5.0) Albumin/Globulin Ratio 1.1 (1.0-1.7) Lipase 180 U/L (73-393) Thyroid Stimulating Hormone (TSH) 1.474 uIU/mL (0.358-3.74) Ethyl Alcohol Level < 10 mg/dL (0-10) Triglycerides Level 165 mg/dL (0-150) Cholesterol Level 153 mg/dL (0-200) LDL Cholesterol, Calculated 80 mg/dL (0-100) VLDL Cholesterol, Calculated 33 mg/dL (0-40) Non-HDL Cholesterol Calculated 113 mg/dL (0-129) HDL Cholesterol 40 mg/dL (40-60) Cholesterol/HDL Ratio 3.8 Laboratory Tests Test 08/07/18 13:20 08/07/18 18:20 08/08/18 04:30 Troponin I Quantitative 0.048 ng/mL (0.000-0.055) 0.053 ng/mL (0.000-0.055) White Blood Count 12.7 x10^3/uL (4.0-11.0) Red Blood Count 4.60 x10^6/uL (4.30-5.70) Hemoglobin 14.4 g/dL (13.0-17.5) Hematocrit 43.5 % (39.0-53.0) Mean Corpuscular Volume 95 fL (79-100) Mean Corpuscular Hemoglobin 31 pg (25-35) Mean Corpuscular Hemoglobin Concent 33 g/dL (31-37) Red Cell Distribution Width 13.5 % (11.5-14.5) Platelet Count 279 x10^3/uL (140-400) Neutrophils (%) (Auto) 61 % (31-73) Lymphocytes (%) (Auto) 28 % (24-48) Monocytes (%) (Auto) 11 % (0-9) Eosinophils (%) (Auto) 1 % (0-3) Basophils (%) (Auto) 0 % (0-3) Neutrophils # (Auto) 7.7 x10^3uL (1.8-7.7) Lymphocytes # (Auto) 3.5 x10^3/uL (1.0-4.8) Monocytes # (Auto) 1.3 x10^3/uL (0.0-1.1) Eosinophils # (Auto) 0.1 x10^3/uL (0.0-0.7) Basophils # (Auto) 0.0 x10^3/uL (0.0-0.2) Sodium Level 141 mmol/L (136-145) Potassium Level 3.4 mmol/L (3.5-5.1) Chloride Level 105 mmol/L (98-107) Carbon Dioxide Level 26 mmol/L (21-32) Anion Gap 10 (6-14) Blood Urea Nitrogen 6 mg/dL (8-26) Creatinine 1.3 mg/dL (0.7-1.3) Estimated GFR (Cockcroft-Gault) 72.6 Glucose Level 101 mg/dL (70-99) Calcium Level 8.8 mg/dL (8.5-10.1) Triglycerides Level 165 mg/dL (0-150) Cholesterol Level 153 mg/dL (0-200) LDL Cholesterol, Calculated 80 mg/dL (0-100) VLDL Cholesterol, Calculated 33 mg/dL (0-40) Non-HDL Cholesterol Calculated 113 mg/dL (0-129) HDL Cholesterol 40 mg/dL (40-60) Cholesterol/HDL Ratio 3.8 Brief Hospital Course 43yo pleasant, relatively healthy middle-aged male who has been experimenting with cocaine lately. He just did it within the past couple of days. He presents to the ER with chest pain. His troponin was slightly bumped to 0.059. We suspect he has a type 2 demand ischemia, rates it / and he has associated nausea and anxiety. 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 Improved by this morning, able to take PO, he wishes to stop cocaine. Plan: Dc on coreg, MARIANNE, ASA The Left Ventricle is mildly dilated. Left ventricle systolic function is severely impaired. The Ejection Fraction is 15-20%. There is severe global hypokinesis of the left ventricle. There is mild concentric left ventricular hypertrophy. There is no significant aortic valvular stenosis. Doppler and Color Flow revealed trace aortic regurgitation. Doppler and Color-flow revealed mild mitral regurgitation. Doppler and Color Flow revealed mild tricuspid regurgitation. The PA pressure was estimated at 38 mmHg. Chest pain, most probable pleuritic as it is worsened with deep breathing Mild troponin elevated; highest 0.059. Most probably type II, demand ischemic in the setting of cocaine use, HTN, and SUZANNE Cardiomyopathy LVEF significantly depressed per preliminary echo. Possible NICM given h/o cocaine abuse Hypertension; elevated Substance abuse; cocaine. Report using a couple time per week for the last five years. Leukocytosis Tachycardia; sinus ? CKD; Cr 1.5 Elevated LFTs Discharge Information Condition at Discharge: Improved Follow Up: Weeks (2) Disposition/Orders: D/C to Home Scheduled Aspirin (Aspirin Ec) 81 Mg Tablet., 81 MG PO [id number] for CHF for 30 Days, # 30 Prescribed by: KAILYN LOPEZ MD on 08/08/18 1305 Carvedilol (Carvedilol ) 6.25 Mg Tablet, 6.25 MG PO BIDWMEALS for Cardiomyopathy for 30 Days, #60 Prescribed by: KAILYN LOPEZ MD on 08/08/18 1305 Lisinopril (Lisinopril) 5 Mg Tablet, 5 MG PO DAILY for CHF for 30 Days, #30 Prescribed by: KAILYN LOPEZ MD on 08/08/18 1305 KAILYN LOPEZ MD Aug 08, 2018 13:14
--- NOTE | 2018-08-08 14:20 | NUR ---
Discharge Note: [facility] Discharge instructions and discharge home medications reviewed with Patient and a copy given. All questions have been answered and understanding verbalized.
== END 2018-08-08 14:42 | disposition home or self-care (01) | DRG 918 ==
LOC: ER 09:10 → 2 SOUTH 10:47
PROVIDERS: ADMIT Internal Medicine; ATTEND Internal Medicine
DX: T40.5X1A Poisoning by cocaine, accidental (unintentional), initial encounter (principal); I42.7 Cardiomyopathy due to drug and external agent; N17.9 Acute kidney failure, unspecified; I24.8 Other forms of acute ischemic heart disease; D72.829 Elevated white blood cell count, unspecified; F12.90 Cannabis use, unspecified, uncomplicated; F14.10 Cocaine abuse, uncomplicated; F17.210 Nicotine dependence, cigarettes, uncomplicated; I12.9 Hypertensive chronic kidney disease with stage 1 through stage 4 chronic kidney disease, or unspecified chronic kidney disease; I25.10 Atherosclerotic heart disease of native coronary artery without angina pectoris; I25.5 Ischemic cardiomyopathy; K21.9 Gastro-esophageal reflux disease without esophagitis; N18.9 Chronic kidney disease, unspecified; Y99.0 Civilian activity done for income or pay; Z82.49 Family history of ischemic heart disease and other diseases of the circulatory system; Z83.3 Family history of diabetes mellitus; Y92.89 Other specified places as the place of occurrence of the external cause; R07.81 Pleurodynia
CPT/HCPCS: 36415; 71045; 71275; 80048; 80053; 80061; 82553; 83690; 83735; 83880; 84443; 84484; 85025; 85379; 85610; 93005; 93306; 96360; G0480; J1940; J7030; Q9967; 99285-25

== ENCOUNTER → 2019-04-05 | Outpatient (CLI) | payer SELFPAY ==
[~2019-04-05] MED LIST: ASPI-612 PO; CARV6.2511 PO; LISI-338 PO
--- NOTE | 2019-04-05 12:32 | RAD ---
EXAM: Left knee, 2 views. HISTORY: Pain. COMPARISON: None. FINDINGS: 2 views of the left knee are obtained. There is no fracture, dislocation or subluxation. There is no joint effusion. There is enthesopathy along the suprapatella. IMPRESSION: No acute osseous finding. Electronically signed by: Dotty Tracey MD (04/05/2019 12:29 PM) [facility]
--- NOTE | 2019-04-05 12:47 | RAD ---
EXAM: Lumbar spine, 2 views HISTORY: Pain. COMPARISON: None. FINDINGS: 2 views of the lumbar spine are obtained. There is no listhesis. No fracture is seen. There is no lytic or sclerotic osseous lesion. There there is mild facet arthropathy at the lumbosacral junction. IMPRESSION: No acute osseous finding. Electronically signed by: Dotty Tracey MD (04/05/2019 12:44 PM) [facility]
== END | disposition home or self-care (01) ==
LOC: RAD 10:49
PROVIDERS: ATTEND Physical Medicine & Rehabilitation
DX: Z02.71 Encounter for disability determination (principal); M76.9 Unspecified enthesopathy, lower limb, excluding foot; M12.88 Other specific arthropathies, not elsewhere classified, other specified site
CPT/HCPCS: 72100; 73560

== ENCOUNTER 2021-01-30 18:17 | Emergency (ER) | payer SELFPAY ==
[~2021-01-30] VITALS: Ht 177.8 cm; Wt 111.0 kg
[~2021-01-30 18:17] MED LIST changes: -ASPI-612 PO; +ASPI-886 PO; -LISI-338 PO; +LISI-517 PO
[2021-01-30 18:57] VITALS: BP 137/80
[2021-01-30] MEDS ORDERED: HYDROcodone/APAP 5/325MG 1 TAB TABLET PO ONE (19:30)
[2021-01-30] MEDS ORDERED: KETOROLAC 60 MG/2 ML VIAL. IM ONE (19:30)
--- NOTE | 2021-01-30 19:47 | RAD ---
EXAMINATION: Right foot radiograph. VIEWS: 3 COMPARISON: None INDICATION:45 years, Male, heel pain. FINDINGS: No acute fracture, dislocation or subluxation. Pes planus. Small calcaneal enthesophyte. No bone eros ion or periosteal reaction. No soft tissue swelling or joint effusion. IMPRESSION: 1. No acute osseous process. 2. Small calcaneal enthesophyte. Electronically signed by: Ho Hills MD (01/30/2021 7:45 PM) [facility]
[2021-01-30] MEDS ORDERED: IBUP-1007 PO (19:59)
--- NOTE | 2021-01-30 20:03 | PHYS DOC ---
Past Medical History Past Medical History: No Pertinent History, GERD, Hypertension Past Surgical History: No Surgical History Smoking Status: Current Every Day Smoker Alcohol Use: Occasionally Drug Use: None General Adult EDM: Chief Complaint: FOOT INJURY PAIN HPI: HPI: Patient is a 45-year-old male presents emergency department complaining of right heel pain for the past few weeks. Patient reports it is worse when he wakes up and eases up throughout the day. Patient reports this morning his pain was a 10 out of 10, currently is 0 out of 10. Patient reports it seems to be getting worse. Patient denies any injury to his foot, denies any recent fever or chills, numbness or tingling to his extremities. Denies pain to his toes. Denies history of gouty arthritis. Reports history of high blood pressure. Patient denies any other physical complaints or physical concerns. Review of Systems: Review of Systems: 14 body systems of review of systems have been reviewed. See HPI for pertinent positives and negative responses, otherwise all other systems are negative, nonpertinent or noncontributory. Constitutional: Negative except as outlined in HPI above. Skin: Negative except as outlined in HPI above. Eyes: Negative except as outlined in HPI above. HENT: Negative except as outlined in HPI above. Respiratory: Negative except as outlined in HPI above. Cardiovascular: Negative except as outlined in HPI above. GI: Negative except as outlined in HPI above. : Negative except as outlined in HPI above. Musculoskeletal: Negative except as outlined in HPI above. Integument: Negative except as outlined in HPI above. Neurologic: Negative except as outlined in HPI above. Endocrine: Negative except as outlined in HPI above. Lymphatic: Negative except as outlined in HPI above. Psychiatric: Negative except as outlined in HPI above. Heart Score: C/O Chest Pain: No Risk Factors: Risk Factors: DM, Current or recent (<one month) smoker, HTN, HLP, family history of CAD, obesity. Risk Scores: Score 0 - 3: 2.5% MACE over next 6 weeks - Discharge Home Score 4 - 6: 20.3% MACE over next 6 weeks - Admit for Clinical Observation Score 7 - 10: 72.7% MACE over next 6 weeks - Early Invasive Strategies Current Medications: Current Medications Medications (Trade) Dose Ordered Sig/Iris Start Time Stop Time Status Last Admin Dose Admin Acetaminophen/ Hydrocodone Bitart (Lortab 5/325) 1 tab 1X ONCE 01/30/21 19:30 01/30/21 19:31 DC 01/30/21 19:45 1 TAB Ketorolac Tromethamine (Toradol Im) 60 mg 1X ONCE 01/30/21 19:30 01/30/21 19:31 DC 01/30/21 19:46 60 MG Allergies: Allergies: Allergies Coded Allergies Type Severity Reaction Last Updated Verified No Known Drug Allergies 04/16/14 No Physical Exam: PE: Constitutional: Well developed, well nourished, no acute distress, non-toxic appearance. 45-year-old male in no apparent distress. HENT: Normocephalic, atraumatic. Eyes: Conjunctiva normal, no discharge. Neck: Normal range of motion, no stridor. Cardiovascular: No cyanosis appreciated, distal cap refill less than 2 seconds. Lungs & Thorax: Patient is in no respiratory distress, no audible adventitious lung sounds appreciated. Abdomen: Nontender, no abnormalities noted. Skin: Warm, dry, no erythema, no rash. Back: No tenderness, no deformities. Extremities: No tenderness, no cyanosis, no clubbing, ROM intact, no edema. Except for right foot. 2+ dorsalis pedis/posterior tibial pulse, distal cap refill less than 2 seconds, no erythema, no edema, no discoloration of the skin, no areas of ecchymosis. Pinpoint pain to palpation center heel. Otherwise patient denies pain. Neurologic: Alert and oriented X 3, normal motor function, normal sensory function, no focal deficits noted. Psychologic: Affect normal, judgement normal, mood normal. Current Patient Data: Vital Signs: Vital Signs Date Time Temp Pulse Resp B/P (MAP) Pulse Ox O2 Delivery O2 Flow Rate FiO2 01/30/21 19:45 16 97 01/30/21 18:57 98.3 108 137/80 (79) Room Air 98.3 EKG: EKG: [] Radiology/Procedures: Radiology/Procedures: PATIENT: KVNG PYLE ACCOUNT: [id number] : 1975 LOCATION: ER AGE: 45 SEX: M EXAM STATUS: REG ER ORD. PHYSICIAN: LEODAN CHAWLA APRN REASON: Heel pain PROCEDURE: FOOT RIGHT 3V EXAMINATION: Right foot radiograph. VIEWS: 3 COMPARISON: None INDICATION:45 years, Male, heel pain. FINDINGS: No acute fracture, dislocation or subluxation. Pes planus. Small calcaneal enthesophyte. No bone erosion or periosteal reaction. No soft tissue swelling or joint effusion. IMPRESSION: 1. No acute osseous process. 2. Small calcaneal enthesophyte. Electronically signed by: Ho Hills MD (01/30/2021 7:45 PM) [facility] Course & Med Decision Making: Course & Med Decision Making Pertinent Labs and Imaging studies reviewed. (See chart for details) 45-year-old male, vital signs reviewed, presents emergency department complaining of right heel pain for the past few weeks. Patient's physical examination, explanation of events, and presentation consistent with bone spur pain versus plantar fasciitis. Discussed physical findings with patient, will order x-ray of right foot, give IM Toradol injection, p.o. pain medication. X-ray of right foot consistent with bone spur of heel. Discussed findings with patient, recommended follow-up with podiatry, purchasing orthotic to help heal in relief heel pain. Strict follow-up with primary care physician this week. Patient is amendable to ED discharge planning. Discussed with the patient all findings and diagnostic testing as well as the need to follow-up with their primary care provider for further evaluation and treatment or return to the ED if any new or worsening symptoms. Strict return precautions were also discussed at length, the patient voiced understanding and agreement with the discharge planning. The patient was nontoxic in appearance, in no apparent distress, and hemodynamically stable at the time of disposition. Ruben Disclaimer: Ruben Disclaimer: This electronic medical record was generated, in whole or in part, using a voice recognition dictation system. Departure Departure Impression: Primary Impression: Plantar fasciitis of right foot Additional Impression: Heel spur Qualified Codes: M77.31 - Calcaneal spur, right foot Disposition: HOME / SELF CARE / HOMELESS Condition: GOOD Referrals: NO PCP (PCP) BRADLY JULIO DPM Patient Instructions: Heel Spur, Plantar Fasciitis Additional Instructions: You were seen today in the emergency department for pain of the right heel. Your physical examination and x-ray are consistent with a bone spur which most likely has caused a plantar fasciitis which is giving your pain sensations. As we discussed at length, please follow-up with a camp boss or your primary care physician, where well fitting shoes with good arch supports to help the healing process. Use [id number] Tylenol and or Motrin for pain. I am prescribing you a regimen of ibuprofen, please take as directed to help with pain. Please return to the emergency department for worsening symptoms or other concerns. Thank you for visiting our Emergency Department. It was a pleasure taking care of you today in the emergency department and we appreciate you trusting us with your care. If any additional problems come up don't hesitate to return to visit us. Please follow up with your primary care provider so they can plan additional care if needed and know about the problem that you had. If symptoms worsen come back to the Emergency Department. Any concerning symptoms that start such as chest pain, shortness of air, weakness or numbness on one side of the body, running high fevers or any other concerning symptoms return to the ER. EMERGENCY DEPARTMENT GENERAL DISCHARGE INSTRUCTIONS Thank you for coming to [facility] Emergency Department (ED) today and trusting us with you care. We trust that you had a positive experience in our Emergency Department. If you wish to speak to the department management, you may call the Director at [phone]. YOUR FOLLOW UP INSTRUCTIONS ARE FOLLOWS: 1. Do you have a private Doctor? If you do not have a private doctor, please ask for a resource list of physicians or clinics that may be able to assist you with follow up care. 2. The Emergency Physicain has interpreted your x-rays. The X-Ray specialist will also review them. If there is a change in the findings, you will be notified in 48 hours when at all possible. 3. A lab test or culture has been done, your results will be reviewed and you will be notified if you need a change in treatment. ADDITIONAL INSTRUCTIONS AND INFORMATION: 1. Your care today has been supervised by a physician who is specially trained in emergency care. Many problems require more than one evaluation for a complete diagnosis and treatment. We recommend that you schedule your follow up appointment as recommended to ensure complete treatment of you illness or injury. If you are unable to obtain follow up care and continue to have a problem, or if your condition worsens, we recommend that you return to the ED. 2. We are not able to safely determine your condition over the phone nor are we able to give sound medical advice over the phone. For these safety reasons, if you call for medical advice we will ask you to come to the ED for further evaluation. 3. If you have any questions regarding these discharge instructions please call the ED at [phone]. SAFETY INFORMATION: In the interest of safety, wellness, and injury prevention; we encourage you to wear your sealbelt, if you smoke; quite smoking, and we encourage family to use a protective helmet for bicycling and other sporting events that present an increased risk for head injury. IF YOUR SYMPTOMS WORSEN OR NEW SYMPTOMS DEVELOP, OR YOU HAVE CONCERNS ABOUT YOUR CONDITION; OR IF YOUR CONDITION WORSENS WHILE YOU ARE WAITING FOR YOUR FOLLOW UP APPOINTMENT; EITHER CONTACT YOUR PRIMARY CARE DOCTOR, THE PHYSICIAN WHOSE NAME AND NUMBER YOU WERE GIVEN, OR RETURN TO THE ED IMMEDIATELY. Scripts Ibuprofen (IBUPROFEN) 600 Mg Tablet 600 MG PO PRN Q6HRS PRN for INFLAMMATION, #30 TAB 0 Refills Prov: LEODAN CHAWLA APRN 01/30/21 LEODAN CHAWLA APRN Jan 30, 2021 20:03
== END 2021-01-30 20:20 | disposition home or self-care (01) ==
LOC: ER 18:17
DX: M72.2 Plantar fascial fibromatosis (principal); M77.31 Calcaneal spur, right foot; I10 Essential (primary) hypertension; K21.9 Gastro-esophageal reflux disease without esophagitis; F17.200 Nicotine dependence, unspecified, uncomplicated
CPT/HCPCS: 73630; 96372; 99283; J1885